=== PATIENT | female | born 1960 | race Caucasian/White ===

== ENCOUNTER 2021-05-16 20:41 | Emergency (ER) | payer OTHER ==
[~2021-05-16] VITALS: Ht 165.1 cm; Wt 80.6 kg
[2021-05-16] MEDS ORDERED: CELECOXIB100 MG PO (21:01)
[2021-05-16] MEDS ORDERED: LIOTHYRONINE SO5 MCG PO (21:02)
[2021-05-16] MEDS ORDERED: LEVOTHYROXINE100 MCG PO (21:02)
== END 2021-05-16 21:46 | disposition home or self-care (01) ==
LOC: ED 20:41
DX: S46.211A Strain of muscle, fascia and tendon of other parts of biceps, right arm, initial encounter (principal); S46.212A Strain of muscle, fascia and tendon of other parts of biceps, left arm, initial encounter; X58.XXXA Exposure to other specified factors, initial encounter; E03.9 Hypothyroidism, unspecified; Z79.899 Other long term (current) drug therapy
CPT/HCPCS: 82550; 99283

== ENCOUNTER 2021-05-17 03:48 | Inpatient (IN) | payer OTHER ==
[~2021-05-17] VITALS: Ht 165.1 cm; Wt 78.2 kg
[~2021-05-17 03:48] MED LIST: CELECOXIB100 MG PO; LEVOTHYROXINE100 MCG PO; LIOTHYRONINE SO5 MCG PO
--- NOTE | 2021-05-17 05:04 | NUR ---
[facility] RAPID COVID TEST DONE PER ORDER. COVID TEST WAS COLLECTED FROM BOTH NARES W/O ISSUE. PT TOLERATED WELL.
--- NOTE | 2021-05-17 05:26 | NUR ---
PATIENT ARRIVED TO THE UNIT WITH HER . PATIENT AMBULITORY. WES KAY MD IN TO SEE PATIENT. IV SITE ESTABLISHED IN LEFT ANKLE/FOOT PER PATIENT'S 'S REQUEST. UNABLE TO DRAW LABS FROM THIS SITE. FLUIDS STARTED BY HENRRY FIGUEROA. LABS DRAWN FROM RIGHT HAND. PATIENT REPORTS PAIN 6/10 AND DENIES NEED FOR PRN PAIN MEDS. PAIN IS PRIMARLY IN RIGHT UPPER ARM WITH MOVEMENT. LESS IN THE LEFT UPPER ARM. AREA IS VISIBLY SWOLLEN BUT SOFT TO PALPATION. PATIENT UP TO THE BATHROOM TO VOID, 100 MLS CONCENTRATED URINE.
--- NOTE | 2021-05-17 06:22 | NUR ---
PATIENT RESTING IN BED TALKING ON PHONE. IV SITE WNL, FLUIDS PER ORDER. PATIENT DENIED NEEDS. CALL LIGHT IN REACH.
--- NOTE | 2021-05-17 06:29 | NUR ---
PT UP TO BATHROOM INDEPENDENTLY ONCE IV PUMP UNPLUGGED. VOIDED 500ML DILUTE URINE. SHOWED HER WHAT TO UNPLUG SO THAT SHE MAY GO TO BATHROOM INDEPENDENTLY. BREAKFAST ORDER CALLED TO KITCHEN.
--- NOTE | 2021-05-17 07:38 | NUR ---
patient is resting in bed. report recieved. IVF PATENT.
--- NOTE | 2021-05-17 08:00 | NUR ---
ASSESSMENT DONE. C/O INCREASE PAIN IN ARMS WITH MOVEMENT. DENIES NEED FOR PAIN MEDICATION. LEFT ARM BICEP MEASURES 14 INCHES, LEFT FA 11.5 INCHES, RIGHT BICEP 15, RFA 11.5. ARMS ELEVATED ON JOSE PILLOWS. UP TO BR TO VOID, IS STABLE ON FEET. VOIDING CLEAR YELLOW URINE. TALKATIVE AND IN GOOD SPIRITS. IVF INFUSING TO LEFT FOOT.
--- NOTE | 2021-05-17 09:00 | NUR ---
TOOK BREAKFAST WELL. IS W/O C/O OR REQUESTS. IVF PATENT.
--- NOTE | 2021-05-17 09:50 | NUR ---
It was my pleasure to visit with Lindsey this morning and discuss her patient care at our facility. Lindsey reports that she is very happy with the nursing care, both in the emergency department and in the ICU. Lindsey did have some concerns regarding the initial care in the ED, with no labs initially being run, however, this was corrected, and per lab results Lindsey was admitted to our facility. Lindsey expresses no other concerns at this time, and denies questions. She verbalizes understanding of her current treatment plan and the medications given, and offered, however, she does choose to defer narctics for pain intervention at this time. Reporting that the pain is tolerable as long as she does not try to straighten her arm. Lindsey is cheerful in conversation, and is oriented to person, place and time, and answers all questions appropriately.
--- NOTE | 2021-05-17 10:30 | NUR ---
ivf decreased to 125 ml/hr, REMAINS ON NS AND BICARB. CONTINUES WITH SLIGHT PAIN IN ARMS. NO INCREASED SWELLING NOTED IN ARMS. GOOD U/O.
--- NOTE | 2021-05-17 10:30 | NUR ---
TO BR TO VOID, THEN TO CHAIR.
--- NOTE | 2021-05-17 11:20 | NUR ---
CONTINUES TO SIT IN CHAIR, DENIES PROBLEMS.
--- NOTE | 2021-05-17 12:00 | NUR ---
ASSESSMENT UNCHANGED. CONTINUES TO DENY NEED FOR PAIN MEDICATION. RATES PAIN 4/10 WHEN EXTENDING ARMS. IN CHAIR, READY TO EAT LUNCH.
--- NOTE | 2021-05-17 13:00 | NUR ---
HAS BEEN AMBULATING TO BR, IS VERY STABLE ON FEET. TAKING PO WELL.
--- NOTE | 2021-05-17 13:15 | NUR ---
Medications reconciled
--- NOTE | 2021-05-17 13:31 | NUR ---
HENRY MEADE IN CHARTING. CONNECTED WITH PT, SHE IS ALERT ORIENTED AND ENGAGING IN CONVERSATION. PT'S MELANIE IS JEW. INQUIRED IF SHE WOULD LIKE THE FELTER TENNIS BALLS TO COME-SHE SAID YES. INFORMED FR HOBSON. WILL FOLLOW
--- NOTE | 2021-05-17 14:29 | NUR ---
CHECKING ON PT, SHE IS ON PHONE. LEFT G.POST AND OTHER MAGAZINE FOR HER. WILL CONTINUE TO FOLLOW
--- NOTE | 2021-05-17 16:00 | NUR ---
ASSESSMENT DONE. HAS LESS PAIN IN ARMS BILAT WITH INCREASED ROM. PATIENT IS AWARE OF MOST RECENT LAB RESULTS. HAS BEEN TAKING PO W/O PROBLEMS. IVF INFUSING TO LEFT FOOT IV SITE. DENIES ABD PAIN OR NAUSEA.
--- NOTE | 2021-05-17 17:00 | NUR ---
urine sent TO LAB for URINE PH.
--- NOTE | 2021-05-17 18:00 | NUR ---
SITTING UP IN CHAIR, HAVING ZOOM MEETING. BLOOD DRAWN.
--- NOTE | 2021-05-17 18:44 | NUR ---
[facility] PH-7.51 ORDERS RECIEVED TO STOP BICARB GTT FOR NOW AND INCREASE NS TO 250 ML/HR. THIS DONE. MINIMAL RESTRICTION OF ARMS WHEN EATING. ROM INCREASING WITH LESS PAIN. BICEPS REMAIN SWOLLEN AND RED. MEASUREMENT OF ARMS ARE APPROX THE SAME THIS MORNING.
--- NOTE | 2021-05-17 19:37 | NUR ---
REPORT RECEIVED FROM TOMA RN, WILL CONTINUE PLAN OF CARE.
--- NOTE | 2021-05-17 20:08 | NUR ---
THIS RN IN TO CHECK ON PT. PT LAYING IN BED AWAKE AND ALERT READING HER BOOK. PT REPORTS NO PAIN AT THIS TIME AND NO FURTHER NEEDS WHEN ASKED. IVF INFUSING AT ORDERED RATE. WILL CONTINUE PLAN OF CARE CALL LIGHT IN REACH, BED IN LOWEST POSITION.
--- NOTE | 2021-05-17 21:15 | NUR ---
THIS RN IN TO ASSESS PT. PT LAYING IN BED ALERT AND ORIENTED X 3. PT REPORTS NO PAIN AT THIS TIME BUT STATES IT STILL HURTS WHEN ATTEMPTING TO USE FULL RANGE OF MOTION. PT STATES THAT IT HAS IMPROVED SINCE THE MORNING. SCHEDULED MEDICATION ADMINISTERED AT THIS TIME, PT PROVIDED WITH ICE WATER PER HER REQUEST. VITALS TAKEN, PATIENT ASSESSED AT THIS TIME. PT RADIAL AND PEDAL PULSES ARE STRONG, CAPILLARY REFILL IS BRISK. PT REPORTS NO FURTHER NEEDS AT THIS TIME, NEW BAG OF IVF INFUSING AT THIS TIME ORDERED, WILL CONTINUE PLAN OF CARE. CALL LIGHT IN REACH, BED IN LOWEST POSITION, PT LAYING IN BED AWAKE AND RESTING AT THIS TIME.
--- NOTE | 2021-05-18 00:27 | NUR ---
THIS RN IN TO ASSESS PT AND ADMINISTER ORDERED MEDICATIONS. PT LAYING IN BED SLEEPING AND WOKE EASILY WHEN THIS RN ENTERED THE ROOM. MEDICATIONS ADMINISTERED ORDERED (SEE MAR), VITALS TAKEN, AND ASSESSMENT COMPLETED. PT REPORTS NO PAIN AT REST AND SEEMS TO HAVE MORE RANGE OF MOTION WITHOUT HAVING ANY PAIN IN HER ARMS. PT PROVIDED WITH WATER AT THIS TIME AND REPORTS NO FURTHER NEEDS. CALL LIGHT IN REACH, BED IN LOWEST POSITION, IV SITE WNL AND FLUSHES EASILY, IVF INFUSING ORDERED, WILL CONTINUE PLAN OF CARE.
--- NOTE | 2021-05-18 00:58 | NUR ---
RESPONDED TO PT CALL LIGHT, IV PUMP ALARMING DUE TO BAG BEING COMPLETE. PT LAYING IN BED AT THIS TIME AWAKE. NEW BAG OF IVF STARTED AT THIS TIME AND IS NOW INFUSING ORDERED. PT REPORTS NO FURTHER NEEDS AT THIS TIME WHEN ASKED, WILL CONTINUE PLAN OF CARE. CALL LIGHT IN REACH, BED IN LOWEST POSITION.
--- NOTE | 2021-05-18 02:58 | NUR ---
LAB CALLED ABOUT PENDING LABS, THEY STATED THEY WOULD CHECK ON THEM AND UPDATE THIS RN AND CALL BACK. WILL CONTINUE PLAN OF CARE.
--- NOTE | 2021-05-18 03:28 | NUR ---
PT CHECKED ON AT THIS TIME, PT SLEEPING IN BED LAYING ON SIDE. PT IN NO APPARENT DISTRESS AT THIS TIME, RESPIRATIONS NOTED AND ARE UNLABORED. PT WAS LEFT UNDISTURBED AT THIS TIME, WILL CONTINUE PLAN OF CARE. IVF INFUSING ORDERED.
--- NOTE | 2021-05-18 05:07 | NUR ---
RESPONDED TO PT CALL LIGHT, IV PUMP ALARMING. PT LAYING IN BED AWAKE, IV BAG COMPLETE, NEW BAG STARTED AT ORDERED RATE. PT ALERT AND ORIENTED AT THIS TIME, VITALS TAKEN, PT ASSESSED. PT REPORTS INCREASED SWELLING IN HER FINGERS, PULSES ASSESSED AND ARE STRONG, REFILL IS BRISK. LUNGS ARE CLEAR THROUGHOUT. PT STATES SHE HAS NO TINGLING IN HER EXTREMITIES AND IS ABLE TO DO MORE RANGE OF MOTION THAN BEFORE WITHOUT MUCH DIFFICULTY IN HER UPPER EXTREMITIES. PT REPORTS NO PAIN AT THIS TIME AND DENIES SHORTNESS OF BREATH. PT REPORTS NO FURTHER NEEDS WHEN ASKED AT THIS TIME, WILL CONTINUE PLAN OF CARE. CALL LIGHT IN REACH, BED IN LOWEST POSITION, IVF INFUSING AT ORDERED RATE.
--- NOTE | 2021-05-18 07:30 | NUR ---
PATIENT SHIFT REPORT RECIEVED FROM CERTIFIED MASTER SAFECRACKER RN. PATIENT RESTING IN BED. PATIENT CALLS APPROPRIATELY. NO OTHER NEEDS AT THIS TIME. WILL CONTINUE TO CLOSELY MONITOR.
--- NOTE | 2021-05-18 10:30 | NUR ---
PATIENT IS INDEPENDENT IN THE ROOM. PATIENT IS ABLE TO GET UP AND DOWN AND INTO THE BATHROOM WITH NO ISSUES. PROVIDED PATIENT WITH WASH CLOTHES AND SOAP TO DO A SPONGE BATH. WILL SEND PATIENT OVER TO THE MEDICAL UNIT TO HAVE A SHOWER THIS AFTERNOON.
--- NOTE | 2021-05-18 11:30 | NUR ---
MEASURED RIGHT ARM NOTED TO BE 38CM ON THE UPPER ARM AND 30.5CM ON THE BICEP. LEFT UPPER ARM IS 37CM AND LEFT BICEP 30CM. PATIENT IS ABLE TO MOVE BOTH UPPER EXTEMITIES. CMS REMAINS INTACT. PATIENT ORDERED LUNCH. THIS RN AND GINNY BUSTAMANTE HAVE BEEN IN MULTIPLE TIMES TO CHECK IN WITH PATIENT. NO FURTHER NEEDS AT THIS TIME. WILL CONTINUE TO CLOSELY MONITOR.
--- NOTE | 2021-05-18 12:30 | NUR ---
PATIENT ASSESSMENT COMPLETED AND REMAINS UNCHANGED. LUNCH ARRIVED PATIENT UP IN THE CHAIR EATING AT THIS TIME. AWAITING LAB RESULTS THAT WERE SENT TO [facility] TO BE RUN. WILL COTNINUE TO MONITOR. MD ARDON UPDATED. WILL CONTINUE TO CLOSELY MONITOR.
--- NOTE | 2021-05-18 12:42 | NUR ---
PT SITTING IN CHAIR, SAID ENJOYING THE VIEW! ALWAYS PLEASANT, HOPING MEDS WILL HELP KIDNEY FUNCTION, DIALYSIS IS ONLY OPTION OTHERWISE.ENCOURAGEMENT GIVEN, PT REQUESTED TO SEE . WILL INFORM FR ARGUELLES. WILL FOLLOW NEEDED
--- NOTE | 2021-05-18 14:30 | NUR ---
[facility] CALLED AND STATED LABS SHOULD BE SENT ANYTIME TO STAFF HERE. WILL WATCH FOR RESULTS ON FAX MACHINE. PATIENT IS RESTING IN THE BED AT THIS TIME. PATIENTS ICE WATER REFILLED AND URINE EMPTIED. PATIENT HAS HAD GOOD URINE OUTPUT THROUGHOUT THE SHIFT. CMS REMAINS INTACT WITH NO ISSUES. WILL CONTINUE TO CLOSELY MONITOR.
--- NOTE | 2021-05-18 15:07 | NUR ---
UPDATED PATIENT ON LABS AND THAT MD WOULD BE IN TO SEE PATIENT. PATIENTS IN TO SEE HER AT THIS TIME. UPDATED ON CURRENT PLAN OF CARE. NO OTHER NEEDS AT THIS TIME. WILL CONTINUE TO CLOSELY MONITOR.
--- NOTE | 2021-05-18 15:59 | NUR ---
MD ARDON IN TO SEE PATIENT. REVIEWED PLAN OF CARE WITH PATIENT. ALL QUESTIONS ANSWERED. PATIENT WILL TRANSFER TO THE MEDICAL UNIT THIS AFTERNOON. PATIENT AGREEABLE TO PLAN OF CARE. WILL CONTINUE TO CLOSELY MONITOR.
--- NOTE | 2021-05-18 16:10 | NUR ---
Spoke with Lindsey and she states she lives in [place] in a 1 story h home with 2 steps. Does not use any DME. Financially stable and per Dr. Salomon will remain through Friday. She denies any needs to go home and will have assist from family.
--- NOTE | 2021-05-18 16:30 | NUR ---
PATIENT TRANSFERED TO THE MEDICAL UNIT WITH DAVID FIGUEROA. DAVID FIGUEROA BROUGHT ALL PATIENT BELONGINGS TO HER NEW ROOM AND THEN WALKED WITH PATIENT PER REQUEST. CALLED AND GAVER REPORT TO MYRTLE FIGUEROA PRIOR TO TRANSFER. ALL QUESTIONS ANSWERED AND UPDATED ON PLAN OF CARE. NO OTHER NEEDS AT THIS TIME.
--- NOTE | 2021-05-18 16:30 | NUR ---
REPORT RECEIVED FROM LOS CCU RN. PT ARRIVED TO MEDICAL FLOOR AMBULATORY. REQUESTING TO SHOWER. IV SALINE LOCKED. VSS. NO ACUTE CHANGES TO ASSESSMENT. INSTRUCTED PT TO CALL WHEN DONE SHOWERING.
--- NOTE | 2021-05-18 16:56 | NUR ---
PATIENT AWAKE IN RECLINER, RN IN ROOM. PATIENT SET UP FOR INDEPENDANT SHOWER, WILL CALL IF ASSISTANCE IS NEEDED.
--- NOTE | 2021-05-18 17:00 | NUR ---
PT SHOWERED AND SITTING UP IN CHAIR. LUNG SOUNDS CLEAR. BUE GENERALIZED SWELLING, CMS IS INTACT AND PT NO LONGER REPORTS TINGLING IN HANDS. SALINE INTO LLE IV @ 150 MLS/HR. BOWEL TONES ACTIVE. TOLERATING REGULAR DIET WELL. PT DENIES PAIN AT THIS TIME. CALLS APPROPRIATELY. LIGHT IN REACH. DENIES FURTHER NEEDS.
--- NOTE | 2021-05-18 19:17 | NUR ---
IN TO REFILL PT ICE WATER, NO FURTHER NEEDS AT THIS TIME
--- NOTE | 2021-05-18 19:32 | NUR ---
SHIFT REPORT RECEIVED FROM MYRTLE FIGUEROA. PT RESTING IN CHAIR. IV FLUIDS INFUSING PER ORDER. NO OTHER NEEDS. CALL LIGHT IN REACH.
--- NOTE | 2021-05-18 20:40 | NUR ---
IN TO GET VITALS, I&Os DONE, PT UP TO VOID RECENTLY, PT HAD ICE WATER, BEDSIDE TABLE AND CALL LIGHT IN PLACE, NO FURTHER NEEDS AT THIS TIME, PT UP TO CHAIR, READING BOOK
--- NOTE | 2021-05-18 21:20 | NUR ---
ASSESSMENT COMPLETED. GCS 15, A&O X5. LUNGS CLEAR, HEART TONES REGULAR. ABD SOFT, NONTENDER, BOWEL TONES ACTIVE. CMS INTACT. BILATERAL ARMS HAVE GENERALIZED EDEMA AND SLIGHT REDNESS. BILATERAL HANDS HAVE TRACE EDEMA. IV WNL, FLUSHED WELL, IV FLUIDS INFUSING PER ORDER. SCHEDULED MEDS PROVIDED. NO OTHER NEEDS AT THIS TIME. CALL LIGHT IN REACH.
--- NOTE | 2021-05-19 | NUR ---
PT RESTING IN BED, EYES CLOSED. RR EVEN, UNLABORED. CALL LIGHT IN REACH.
--- NOTE | 2021-05-19 00:47 | NUR ---
IV PUMP ALARMING, NEW BAG IV FLUIDS PROVIDED. I&O COMPLETED. NO OTHER NEEDS. CALL LIGHT IN REACH.
--- NOTE | 2021-05-19 01:38 | NUR ---
MD NOTIFIED OF [facility] BY PHONE. NO ORDERS PROVIDED.
--- NOTE | 2021-05-19 04:31 | NUR ---
pt resting in bed, eyes closed. rr even, unlabored. call light in reach.
--- NOTE | 2021-05-19 05:10 | NUR ---
IN TO GET VITALS WITH RN, I&Os DONE, ICE WATER GIVEN, ROOM TIDY AND WHITEBOARD UPDATED, NO FURTHER NEEDS AT THIS TIME
--- NOTE | 2021-05-19 05:33 | NUR ---
ASSESSMENT, VS AND I&O COMPLETED. PT DENIES PAIN PT STATES THAT SHE FEELS HER UPPER ARMS ARE SOFTER AND FOREARMS ARE THE SAME THE EVENING ASSESSMENT. GCS 15, A&O X4. LUNGS CLEAR, HEART TONES REGULAR. ABD SOFT, NONTENDER, BOWEL TONES ACTIVE. CMS INTACT. PT REPORTS MORE ROM IN ARMS. IV WNL, IV FLUIDS INFUSING PER ORDER. NO OTHER NEEDS AT THIS TIME. CALL LIGHT IN REACH.
--- NOTE | 2021-05-19 06:21 | NUR ---
SCHEDULED MEDS PROVIDED. NO OTHER NEEDS AT THIS TIME. CALL LIGHT IN REACH.
--- NOTE | 2021-05-19 07:30 | NUR ---
REPORT RECEIVED FROM TAWNYA COMPUTER APPLICATIONS ENGINEER RN. PT SITTING UP IN CHAIR READING A BOOK THIS AM. VERY PLEASANT MOOD, A&O X4. NS INFUSING @ 150 MLS/HR. LEFT FOOT IV REMAINS PATENT AND SITE IS WN. PT IS WITHOUT COMPLAINT THIS AM. DENIES PAIN AT THIS TIME. INDEPENDENT TO BATHROOM TO VOID, STEADY ON FEET. DENIES FURTHER NEEDS. CALL LIGHT IN REACH.
--- NOTE | 2021-05-19 08:30 | NUR ---
ALL LABS TRENDING DOWN. CRITICAL VALUE FOR CREATINE KINASE [id number], DR. CROOKS SPECIFIED IN RN NOTIFY ORDERS NO NEED TO NOTIFY MD IF CK & MYOGLOBIN ARE ELEVATED BUT TRENDING DOWN.
--- NOTE | 2021-05-19 09:15 | NUR ---
PT INQUIRING ABOUT BREAKFAST, RE-ORDERED. LOVENOX INJECTION GIVEN. IVF SWITCHED FROM NS TO LR PER MD ORDER AND RATE CHANGED TO 100 MLS/HR. PT DENIES FURTHER NEEDS.
--- NOTE | 2021-05-19 10:36 | NUR ---
PATIENT UP IN CHAIR. VITALS AND I&OS CHARTED. LINENS CHANGED, CALL LIGHT AND PERSONAL ITEMS IN CLOSE REACH, NO OTHER NEEDS AT THIS TIME
--- NOTE | 2021-05-19 10:50 | NUR ---
ASSESSMENT COMPLETE. NO ACUTE CHANGES. LUNG SOUNDS CLEAR. LEFT UPPER ARM 30 CM, RIGHT UPPER ARM 30 CM, LEFT FOREARM 23 CM, RIGHT FOREARM 24.5 CM. PT REPORTS SHE FEELS THE SWELLING HAS GONE DOWN AND RANGE OF MOTION HAS IMPROVED. HAT IN TOILET EMPTIED OF 1000 MLS CLEAR YELLOW URINE. LUNCH ORDERED AND ICE WATER REFRESHED. VSS. PT HAS NO FURTHER NEEDS AT THIS TIME.
--- NOTE | 2021-05-19 12:00 | NUR ---
Pt sitting up in chair eating lunch a watching TV. Father Leon in to visit.
--- NOTE | 2021-05-19 13:48 | NUR ---
PATIENT RESTING IN BED. VITALS AND I&OS CHARTED. FRESH ICE WATER PROVIDED, CALL LIGHT AND PERSONAL ITEMS IN REACH. NO OTHER NEEDS AT THIS TIME
--- NOTE | 2021-05-19 16:00 | NUR ---
IN TO DRAW CK AND PHOSPHORUS FROM [facility], SENT TO LAB. HAT IN TOILET EMPTIED OF 1000 MLS DILUTE YELLOW URINE. PT HAS BEEN UP IN ROOM WALKING FREQUENTLY. LR CONTINUES TO INFUSE AT 100 MLS/HR. CALL LIGHT IN REACH. NO FURTHER NEEDS AT THIS TIME.
--- NOTE | 2021-05-19 18:13 | NUR ---
PT SITTING UP IN CHAIR AFTER DINNER. 22 G IV IN LFA REMAINS PATENT, LR CONTINUES AT 100 MLS/HR. PHOSPHORUS WNL. CK STILL PENDING. PT EATING AND DRINKING VERY WELL. CALLS APPROPRIATELY FOR NEEDS.
--- NOTE | 2021-05-19 18:34 | NUR ---
DR. CROOKS CALLED TO NOTIFY OF CK TRENDING UP TO 20,210. NEW ORDERS FOR LR INCREASED 150 MLS/HR. ALSO NOTIFIED OF REDDENED AREA TO LEFT EYE THAT APPEARS TO RESEMBLE A STYE. VISITING AT THIS TIME. HAT IN TOILET EMPTIED OF 1000 MLS. BONE GRINDER IN FOR VITALS, STABLE.
--- NOTE | 2021-05-19 18:35 | NUR ---
PATIENT SITTING ON COUCH WITH , VITALS AND I&OS CHARTED. GARBAGE EMPTIED, CALL LIGHT AND PERSAONAL ITEMS IN EASY REACH
--- NOTE | 2021-05-19 19:39 | NUR ---
SHIFT REPORT RECEIVED FROM MYRTLE FIGUEROA. LAB IN ROOM. NO NEEDS AT THIS TIME.
--- NOTE | 2021-05-19 21:27 | NUR ---
ASSESSMENT, VS AND I&O COMPLTED. GCS 15, A&O X4. LUNGS CLEAR, HEART TONES REGULAR. ABD SOFT, NONTENDER, BOWEL TONES ACTIVE, PT STATES NORMAL. CMS INTACT. GENERALIZED EDEMA IN BUE, PT STATES SHE HAS MORE ROM AND FEELS THEY ARE SOFTER THAN YESTERDAY. I WNL, CDI, IV FLUIDS INFUSING PER ORDER. SCHEDULED MEDS PROVIDED. HEAT PACK PROVIDED FOR LEFT EYE REDNESS.ICE WATER PROVIDED. NO OTHER NEEDS. CALL LIGHT IN REACH.
--- NOTE | 2021-05-19 23:39 | NUR ---
PT RESTING IN BED, IV FLUIDS INFUSING PER ORDER. CALL LIGHT IN REACH.
--- NOTE | 2021-05-20 01:05 | NUR ---
PT RESTING IN BED. CALL LIGHT IN REACH.
--- NOTE | 2021-05-20 01:20 | NUR ---
IV PUMP ALARMING, NEW BAG IV FLUIDS PROVIDED. URINE EMPTIED. NO OTHER NEEDS. CALL LIGHT IN REACH.
--- NOTE | 2021-05-20 03:27 | NUR ---
PT RESTING IN BED. CALL LIGHT IN REACH.
--- NOTE | 2021-05-20 06:10 | NUR ---
IN TO GET VITALS, ICE WATER FILLED, NO FURTHER NEEDS
--- NOTE | 2021-05-20 06:30 | NUR ---
ASSESSMENT COMPLETED. PT STATES ARMS HAVE FULL ROM TODAY. CMS INTACT. IV WNL, CDI. SCHEDULED MEDS PROVIDED. IV FLUIDS INFUSING. NO OTHER NEEDS. CALL LIGHT IN REACH.
--- NOTE | 2021-05-20 07:30 | NUR ---
PT AWAKE AND INTERACTIVE AT TIME OF BEDSIDE REPORT. DENIES DISCOMFORTS OR NEEDS OF.
--- NOTE | 2021-05-20 08:05 | NUR ---
PT LAB RESULTS COMING IN REVIEWED WITH HER PER REQUEST. PT UP IN THE CHAIR AT THIS TIME FRESH H20 AT BEDSIDE BREAKFAST ORDERED.
--- NOTE | 2021-05-20 09:19 | NUR ---
PT CONTINUES IN THE CHAIR READING AND USING COMPUTER TOLERATES 100% OF MORNING MEAL.
--- NOTE | 2021-05-20 09:28 | NUR ---
PATIENT UP IN CHAIR, VITALS AND I&OS CHARTED. RN IN ROOM. FRESH ICE WATER PROVIDED, CALL [facility] IN REACH, NO OTHER NEEDS AT THIS TIME
--- NOTE | 2021-05-20 10:23 | NUR ---
DR CROOKS IN TO SEE PT ALL QUESTIONS ANSWERED, PLANS GOING FORWARD DISCUSSED.
--- NOTE | 2021-05-20 12:47 | NUR ---
PT HAD A SHOWER RETURNS TO THE CHAIR FOR SELF DIRECTED ACTIVITIES. SAYS SHE "FEELS SO GOOD" FRESH H20 PROVIDED DENIES OTHER NEEDS OF.
--- NOTE | 2021-05-20 14:12 | NUR ---
PATIENT UP IN CHAIR, VITALS AND I&OS CHARTED. LINENS CHANGED. PATIENT SHOWERED TODAY. CALL LIGHT IN REACH. NO OTHER NEEDS AT THIS TIME
--- NOTE | 2021-05-20 14:15 | NUR ---
PT SITTING UP IN A CHAIR READING A BOOK, FRESH H20 AND CALL LIGHT IN REACH. DENIES DISCOMFORTS OR NEEDS OF.
--- NOTE | 2021-05-20 15:38 | NUR ---
PATIENT AMBULATING HALL
--- NOTE | 2021-05-20 16:30 | NUR ---
FRESH ICE WATER AND BOTTLE OF 7UP PROVIDED PER PATIENT REQUEST
--- NOTE | 2021-05-20 18:12 | NUR ---
PT RESTING IN BED USING HOT PACK ON HER EYE. EVENING MEAL IS SERVED SHE DENIES OTHER NEEDS
--- NOTE | 2021-05-20 18:43 | NUR ---
PATIENT UP IN ROOM, VITALS AND I&OS CHARTED. NO OTHER NEEDS AT THIS TIME
--- NOTE | 2021-05-20 19:10 | NUR ---
SHIFT REPORT RECEIVED FROM DAYSHIFT RN SHAHRAM AT BEDSIDE, pt AWAKE AND RESTING IN BED. RR EVEN AND UNLABORED, NO DISTRESS NOTED. DENIES PAIN, NO NEEDS VERBALIZED. LR INFUSING AT 125MLS/HR, IV SITE WNL. CALL LIGHT IN REACH.
--- NOTE | 2021-05-20 20:45 | NUR ---
ASSESSMENT COMPLETE, SCHEDULED MEDS GIVEN (SEE EMAR). VSS, pt DENIES PAIN AND NAUSEA. pt REPORTS SWELLING IN BUE CONTINUES TO IMPROVE, WILL CONTINUE TO MONITOR. IV FLUIDS INFUISNG AT 125MLS/HR, IV SITE WNL AND FLUSHES WELL. FRESH WATER AT BEDSIDE, NO FURTHER NEEDS. pt VISITING WITH . CALL LIGHT IN REACH.
--- NOTE | 2021-05-20 20:46 | NUR ---
ROUNDED CHARGE. PRIMARY RN IN ROOM. VSS. ICE WATER REFILLED. NO ADDITIONAL REQUESTS. IN ROOM.
--- NOTE | 2021-05-20 21:50 | NUR ---
CALL LIGHT ANSWERED. URINE EMPTIED, DILUTE URINE. NO ADDITIONAL REQUESTS. pt RESTING IN BED READING BOOK. CALL LIGHT IN REACH.
--- NOTE | 2021-05-20 23:45 | NUR ---
pt RESTING QUIETLY IN BED ON RA, RR EVEN AND UNLABORED. NO DISTRESS NOTED, CALL LIGHT IN REACH.
--- NOTE | 2021-05-21 00:22 | NUR ---
NEW BAG IV FLUIDS HUNG AND INFUSING AT 125MLS/HR, IV SITE WNL. NO FURTHER NEEDS, CALL LIGHT IN REACH.
--- NOTE | 2021-05-21 02:56 | NUR ---
pt RESTING IN BED WITH EYES CLOSED, RR EVEN AND UNLABORED. NO DISTRESS NOTED. CALL LIGHT IN REACH. IV FLUIDS INFUSING PER MD ORDERS.
--- NOTE | 2021-05-21 06:09 | NUR ---
ASSESSMENT COMPLETE, NO NEW CHANGES OR CONCERNS. SCHEDULED THYROID MEDS GIVEN, SEE EMAR.VSS AND I&O'S COMPLETE, DENIES PAIN AND NAUSEA. IV SITE WNL. CALL LIGHT IN REACH.
--- NOTE | 2021-05-21 07:19 | NUR ---
PT TALKING ON THE PHONE AT TIME OF SHIFT EXCHANGE. UNEVENTFUL NIGHT PER NOC RN. PT SITTING UP IN THE CHAIR CALL LIGHT IN REACH.
--- NOTE | 2021-05-21 08:38 | NUR ---
PT REMAINS UP IN THE CHAIR COMPLETES 100% OF MORNING MEAL. LABS REVIEWED PER HER REQUEST ALL QUESTIONS ANSWERED. FRESH H20 AT CHAIRSIDE NO OTHER REQUESTS.
--- NOTE | 2021-05-21 09:55 | NUR ---
BOTH DR CASTREJON AND DR CROOKS IN TO SEE THIS PT THIS A.M
--- NOTE | 2021-05-21 11:16 | NUR ---
WENT OVER DC INSTRUCTIONS PT VERBALIZES UNDERSTANDING DENIES FURTHER QUESTIONS
== END 2021-05-21 12:45 | disposition home or self-care (01) | DRG 557 ==
LOC: CCU 03:48 → EDSTATUS 10:05 → MS 05-18 16:30
PROVIDERS: ADMIT Internal Medicine; ATTEND Internal Medicine
DX: M62.82 Rhabdomyolysis (principal); K72.00 Acute and subacute hepatic failure without coma; Z20.822 Contact with and (suspected) exposure to COVID-19; E03.9 Hypothyroidism, unspecified; E55.9 Vitamin D deficiency, unspecified; E53.8 Deficiency of other specified B group vitamins; Z79.899 Other long term (current) drug therapy
CPT/HCPCS: 80048; 80053; 80076; 81001; 82553; 82800; 83874; 84100; 85025; 85651; C9803; J1650; J7030; J7070; J7121; U0003

== ENCOUNTER 2024-05-25 07:30 | Day surgery (SDC) | payer OTHER ==
[2024-05-24 13:24] VITALS: BP 118/81
[~2024-05-25] VITALS: Ht 165.1 cm; Wt 84.1 kg
[~2024-05-25 07:30] MED LIST changes: +CIPROFLOXACIN 0.3% 5 ML HOME.PACK ONE; +DEXAMETHASONE SOD PHOS 4 MG/ML VIAL ONE; +FAMOTIDINE 20 MG/ 2 ML VIAL ONE; +IBLOOD GLUCOSE TEST STRIP 1 EA TEST VI PRN; +KETOROLAC TROMETHAMINE 30 MG/ML VIAL ONE; +LACTATED RINGER'S 1,000 ML IV ONE; +LACTATED RINGER'S 1,000 ML IV SCH; +LIDOCAINE HCL 1% 5 ML SDV INJ ONE; +METOCLOPRAMIDE HCL 10 MG/2 ML SDV ONE; +MIDAZOLAM HCL 2 MG/2 ML VIAL ONE; +MULTI VITAMIN1 EACH PO; +TRAMADOL HCL50 MG PO; +fentaNYL citrate 100 MCG/2 ML VIAL ONE; +ondansetron HCL 4 MG/2 ML VIAL ONE; +propofoL 200 MG/20 ML VIAL ONE
[2024-05-25 07:39] VITALS: BP 130/81
--- NOTE | 2024-05-25 08:15 | NUR ---
0800 updated patient on wait time, pt seems agreeable and understanding. pt has call light within reach and personal items within reach.
[2024-05-25] MEDS ORDERED: CIPROFLOXACIN 0.3% 5 ML HOME.PACK OTIC ONE (09:00)
[2024-05-25] MEDS ORDERED: droPERidol 5 MG/2 ML VIAL ONE (09:06)
--- NOTE | 2024-05-25 09:36 | NUR ---
05/25/24 0936 Susan Leon 0908- PT ARRIVES TO PACU, SEMI CENTENO POSITION. 1ST LITER LR COMPLETE AND CHANGED TO 2ND LITER, INFUSING TO RFA IV. O2 AT 6L PER MASK, BREATHING EVEN AND NON LABORED. PT IS REACTIVE TO STIMULUS, BUT FALLS BACK TO SLEEP. DENIES PAIN AND NAUSEA. PT HAS COTTON BALLS IN BILATERAL EARS, CDI. ABD SOFT, NON DISTENDED. NO SIGNS OF DISTRESS. ALL MONITORS IN PLACE. 0931- PT WAKES EASILY TO VERBAL STIMULI, DR GARCIA AT BEDSIDE TO DISCUSS PROCEDURE. PT MOVED TO ROOM AIR, TOLERATING WELL. WILL CONTINUE TO MONITOR.
[2024-05-25] MEDS ORDERED: PROCHLORPERAZINE EDISYLATE 10 MG/2 ML VIAL IV PRN (09:45)
[2024-05-25] MEDS ORDERED: NALOXONE HCL 0.4 MG SYR IV PRN (09:45)
[2024-05-25] MEDS ORDERED: MORPHINE SULFATE 10 MG/ML VIAL IV PRN (09:45)
[2024-05-25] MEDS ORDERED: droPERidol 5 MG/2 ML VIAL IV PRN (09:45)
[2024-05-25] MEDS ORDERED: IBLOOD GLUCOSE TEST STRIP 1 EA TEST VI PRN (09:45)
[2024-05-25] MEDS ORDERED: METOCLOPRAMIDE HCL 10 MG/2 ML SDV IV PRN (09:45)
[2024-05-25] MEDS ORDERED: fentaNYL citrate 50 MCG/ML SDV IV PRN (09:45)
[2024-05-25] MEDS ORDERED: ondansetron HCL 4 MG/2 ML VIAL IV PRN (09:45)
[2024-05-25 09:56] VITALS: BP 101/48
[2024-05-25 10:41] VITALS: BP 124/65
--- NOTE | 2024-05-25 10:50 | NUR ---
LE 0950 PT ARRIVED FROM PACU TO DAY SURGERY VIA STRECHER. PT DROWSEY. BREATHING EQUAL AND UNLABORED. PT REPORTS NO PAIN OR NAUSEA. VITALS TAKEN. IV ASSESSED. PT RESTING IN BED WITH CALL LIGHT WITHIN REACH AND PERSONAL ITEMS WITHIN REACH. PT HAS SNACKS AND WATER AT BEDSIDE.
--- NOTE | 2024-05-25 10:51 | NUR ---
1050 HOURLY ROUNDING DONE. PT ABLE TO AMBULATE TO BATHROOM BUT UNABLE TO VOID AT THIS TIME. PT DRINKING MORE PO FLUIDS AND HAS BEEN ABLE TO EAT CRACKERS. VITALS TAKEN. IV ASSESSED. PT RESTING IN BED WITH CALL LIGHT WITHIN REACH.
--- NOTE | 2024-05-25 11:00 | NUR ---
1050 DISCHARGE INFORMATION GONE OVER WITH PT. PT HAS NO FURTHER QUESTIONS AT THIS TIME. DISCUSSED WITH PT THAT IF PT IS UNABLE TO URINATE LATER IN THE DAY OR HAS ANY BLADDER PAIN TO CALL OR COME IN. PT STATES UNDERSTANDING. PT GETTING DRESSED. 1055 IV DISCONTINUED
--- NOTE | 2024-05-25 11:27 | NUR ---
1120 PT DISCHARGED FROM DAY SURGERY VIA WHEELCHAIR TO THE FRONT OF THE HOSPITAL TO SPOUSE'S CAR.
--- NOTE | 2024-05-25 12:19 | OR ---
[facility] [address], [place] [address] Signed DATE OF OPERATION: 05/25/2024 SURGEON: Vinay Garcia MD PREOPERATIVE DIAGNOSIS: Chronic bilateral eustachian tube dysfunction. POSTOPERATIVE DIAGNOSIS: Chronic bilateral eustachian tube dysfunction. PROCEDURE: Bilateral myringotomy and ventilation tube insertion. ANESTHESIA: General, LMA; Bernardo TERRAZAS PREOPERATIVE HISTORY: Mrs. Griffith is a 63-year-old lady with chronic eustachian tube problems, difficulty clearing her ears, very uncomfortable. She is taken to the operating room for the above-mentioned procedures after failure of outpatient conservative medication therapy. OPERATIVE PROCEDURE AND FINDINGS: After informed consent, the patient was taken to the operating room, placed in supine position, where general LMA anesthesia was induced. The patient and procedure were verified. The left ear was examined with the operating microscope. Eardrum was retracted. Anterior-inferior radial myringotomy was made. No middle ear effusion. Watts tube placed in myringotomy site. Ofloxacin ophthalmic drops applied to the ear canal, cotton ball to the meatus. Same procedure and same findings on right ear. The patient tolerated the procedure well, was awakened, extubated, and transported to the recovery room in good condition. COMPLICATIONS: No complications. BLOOD LOSS: Minimal. SPECIMEN: No specimen. Electronically Signed By: VINAY GARCIA MD 05/25/24 1219 PATIENT NAME: OSVALDO GRIFFITH BEENA OPERATIVE REPORT DATE OF : 64 REPORT #: [id number] PHYSICIAN: VINAY GARCIA MD PCP: EMILI RIVERA MD REPORT IS CONFIDENTIAL AND NOT TO BE RELEASED WITHOUT AUTHORIZATION [address] [place] [address] Signed DRAINS: No drains. Vinay Garcia MD /MODL /[id number] Copies: ~ Electronically Signed By: VINAY GARCIA MD 05/25/24 1219 PATIENT NAME: OSVALDO GRIFFITH OPERATIVE REPORT DATE OF : 64 REPORT #: [id number] PHYSICIAN: VNIAY GARCIA MD PCP: EMILI RIVERA MD REPORT IS CONFIDENTIAL AND NOT TO BE RELEASED WITHOUT AUTHORIZATION
== END 2024-05-25 11:20 | disposition home or self-care (01) ==
LOC: DS 07:30
PROVIDERS: ATTEND Otolaryngology
PROC: 099500Z Drainage of Right Middle Ear with Drainage Device, Open Approach (ICD-10-PCS; 2024-05-25)
PROC: 099600Z Drainage of Left Middle Ear with Drainage Device, Open Approach (ICD-10-PCS; principal; 2024-05-25 10:00)
DX: H69.93 Unspecified Eustachian tube disorder, bilateral (principal); E03.9 Hypothyroidism, unspecified; H65.91 Unspecified nonsuppurative otitis media, right ear
CPT/HCPCS: J1100; J1790; J1885; J2250; J2405; J2704; J2765; J3010; J7121